=== PATIENT | female | born 1990 | race Caucasian/White ===

== ENCOUNTER 2017-08-06 20:06 | Emergency (ER) | payer SELFPAY ==
[2017-08-06 20:11] VITALS: BP 120/84; BMI 21.7
--- NOTE | 2017-08-07 07:35 | DR.TOOTHHP ---
HPI - Primary Care Physician Primary Care Physician: kim - Complaints Chief Complaint:: TOOTHACHE LEFT LOWER Self Treatment fo Chief Complaint: HYDROCODONE, TYLENOL WITH CODEINE, AMOXICILLIN 500M BID - Source History Provided: Patient - Mode of Arrival Mode of Arrival: Ambulatory - Timing Onset of Chief Complaint: 08/06/17 PMH - PMH Past Medical History: Yes Past Medical History: Kidney Stones Past Surgical History: Yes Past Surgical History Comment: BACK SURGERY - Family History History of Family Medical Conditions: No - Social History Type of Tobacco Use: Cigarettes Alcohol Use: None Do you use any recreational Drugs:: No Lives With: Family Lives Where: Home - infectious screening Have you traveled outside the country in the last 6 months?: No Isolation: Standard PE - Vital Signs Vitals: Temperature 98.5 F Pulse Rate 87 Respiratory Rate 20 Blood Pressure 120/84 O2 Sat by Pulse Oximetry 99 - Discharge Plan Disposition: LWBS After Triage Condition: Stable - Follow ups/Referrals Follow ups/Referrals: EMMANUEL LAURA [Primary Care Provider] - 3 days - Instructions
== END 2017-08-06 20:17 | disposition left against medical advice (07) ==
LOC: ER 20:06
DX: K08.89 Other specified disorders of teeth and supporting structures (principal)
CPT/HCPCS: 99281

== ENCOUNTER 2017-08-29 04:10 | Emergency (ER) | payer SELFPAY ==
[2017-08-29 04:24] VITALS: BP 123/80; BMI 20.9
[2017-08-29] MEDS ORDERED: TORADOL 30 MG VIAL ONE (04:29)
[2017-08-29] MEDS ORDERED: NS 1000 ML 1,000 ML ONE (04:29)
[2017-08-29] MEDS ORDERED: NS 1000 ML 1,000 ML IV ONE (04:39)
[2017-08-29] MEDS ORDERED: TORADOL 30 MG VIAL IVP ONE (04:39)
[2017-08-29 04:44] LABS: COLOR,URINE RED (YELLOW)
[2017-08-29 04:45] LABS: APPEARANCE,URINE HAZY (CLEAR); BACTERIA,URINE 1+ /HPF (Negative); MUCUS,URINE MODERATE /HPF (NEGATIVE); RBC,URINE 80-100 /HPF (NEGATIVE); SQUAMOUS EPITHELIAL CELL,UR FEW /HPF (NEGATIVE)
--- NOTE | 2017-08-29 05:28 | CT ---
CT abdomen and pelvis without contrast Indication: Left flank pain and hematuria Technique: Helical CT images of the abdomen and pelvis were obtained without IV contrast. Reformatted images in the coronal and sagittal planes were also generated for review. Comparison: None Findings: The lung bases are clear. Partially imaged posterior thoracolumbar fusion hardware is prese nt without visualized complication. No acute or aggressive osseous abnormality is identified. Streak artifact related to thoracolumbar fusion hardware slightly limits evaluation. Evaluation for s oft tissue pathology is also limited without intravenous contrast. Given these limitations, the liver , gallbladder, spleen, pancreas and adrenals are unremarkable. There are multiple small nonobstructin g stones within both kidneys. No radiopaque ureteral stones are identified and there is no left or ri ght hydroureteronephrosis. The GI tract, including the appendix is normal. The IVC, abdominal aorta and urinary bladder are norm al. The unenhanced uterus and adnexa are grossly within normal limits. No free air, free fluid or lym phadenopathy is identified. Impression: Bilateral nonobstructing nephrolithiasis. Reported By:
[2017-08-29] MEDS ORDERED: MORPHINE SULFATE INJ 4 MG IVP ONE (05:38)
[2017-08-29] MEDS ORDERED: MORPHINE SULFATE INJ 2 MG INJ ONE (05:39)
--- NOTE | 2017-08-29 05:40 | DR.GENAD ---
HPI - PCP Primary Care Physician: KEYA - Complaint/Symptoms Chief Complaint:: PT STATES" MY LT SIDE HAS BEEN HURTING FREQUENCY THE LAST COUPLE OF DAYS I NOTICED BLOOD IN MY URINE ALSO. I LAST HAD A KIDNEY STONE 5 YEARS AGO" - Source History Provided: Patient - Mode of Arrival Mode of Arrival: Ambulatory - Timing Onset of Chief Complaint: 08/29/17 PMH - PMH Past Medical History: Yes Past Medical History: Kidney Stones Past Surgical History: Yes Past Surgical History Comment: BACK SURGERY - Family History History of Family Medical Conditions: Yes - Social History Type of Tobacco Use: Cigarettes Does any household member use tobacco: No Alcohol Use: Occasionally Do you use any recreational Drugs:: No Lives With: Family Lives Where: Home - infectious screening In the last 2 months have you had wt loss of >10#?: NO Have you had fever, night sweats or hemotysis?: No Have you traveled outside the country in the last 6 months?: No Isolation: Standard ROS - Review of Systems Eyes: No Symptoms Reported ENTM: No Symptoms Reported Respiratoy: No Symptoms Reported Cardiovascular: No Symptoms Reported Gastrointestinal/Abdominal: No Symptoms Reported Genitourinary: No Symptoms Reported Neurological: No Symptoms Reported Musculoskeletal: No Symptoms Reported Integumentary: No Symptoms Reported Hematologic/Lymphatic: No Symptoms Reported Endocrine: No Symptoms Reported Psychiatric: No Symptoms Reported All Other Systems: Reviewed and Negative PE - Vital Signs Vitals: Temperature 97.8 F Pulse Rate 100 Respiratory Rate 18 Blood Pressure 123/80 O2 Sat by Pulse Oximetry 99 - General Limitations: No Limitations General Appearance: Alert, Anxious - Head Head Exam: Normal Inspection, Atraumatic - Eyes Eye exam: Normal Appearance, PERRL, EOMI - ENT ENT Exam: Normal Exam External Ear Exam: Normal External Inspection TM/Canal Exam: Bilateral Normal Nose Exam: Normal Nose Exam Mouth Exam: Normal Inspection Throat Exam: Normal Inspection - Neck Neck Exam: Normal Inspection, Full ROM - Chest Chest Inspection: Normal Inspection, Symmetric Chest Wall Rise - Respiratory Respiratory Exam: Normal Lung Sounds Bilat Respiratory Exam: Bilateral Clear to Auscultation - Cardiovascular Cardiovascular Exam: Regular Rate, Normal Rhythm - Abdominal Exam Abdominal Exam: Normal Inspection, Normal Bowel Sounds Abdominal Tenderness: RUQ, LUQ - Extremities Extremities Exam: Normal Inspection, Full ROM - Back Back Exam: Normal Inspection, Tenderness, Other (mid low back) - Neurologic Neurological Exam: Alert, Oriented X3, CN II-XII Intact - Psychiatric Psychiatric Exam: Normal Affect - Skin Skin Exam: Warm, Dry, Intact Course - Reevaluation 1st: Improved - Education/Counseling Educated On: Treatment, Diagnosis, Prognosis, Needs for Follow Up ROR - Labs Reviewed Laboratory: Specimen Type Clean catch urine 08/29/17 04:27 Urine Color Red (YELLOW) 08/29/17 04:27 Urine Appearance Hazy (CLEAR) 08/29/17 04:27 Urine RBC 80-100 /HPF (NEGATIVE) 08/29/17 04:27 Urine WBC 8-12 /HPF (NEGATIVE) 08/29/17 04:27 Ur Squamous Epith Cells Few /HPF (NEGATIVE) 08/29/17 04:27 Urine Bacteria 1+ /HPF (Negative) 08/29/17 04:27 Urine Mucus Moderate /HPF (NEGATIVE) 08/29/17 04:27 Ur Culture Indicated? Yes/culture set up 08/29/17 04:27 Micro UA Comment Unable to perform (-) 08/29/17 04:27 - XRAY XRAY Interpreted by: Radiologist (CT: Abd/pel: Bilateral nonobstructing nephrolitihiasis) - Diagnosis Discharge Problem: Bilateral nonobstruction nehrolithiasis - Discharge Plan Condition: Stable - Follow ups/Referrals Follow ups/Referrals: EMMANUEL LAURA [Primary Care Provider] - 3 days - Instructions
== END 2017-08-29 06:15 | disposition home or self-care (01) ==
LOC: ER 04:10
DX: N20.0 Calculus of kidney (principal)
CPT/HCPCS: 74176; 81015; 87086; 96365; 96374; 99283; A4222; J1885; J2270

== ENCOUNTER 2017-09-09 01:34 | Emergency (ER) | payer SELFPAY ==
[2017-09-09 01:45] VITALS: BMI 20.9
[2017-09-09] MEDS ORDERED: ZOFRAN INJ 4 MG VIAL IVP ONE (02:09)
[2017-09-09] MEDS ORDERED: NS 1000 ML 1,000 ML IV ONE (02:09)
[2017-09-09] MEDS ORDERED: ROCEPHIN VIAL 1 GM 1 GM in NS 50 ML IV + SPIKE MINIBAG* 50 ML IV ONE (02:09)
[2017-09-09] MEDS ORDERED: TORADOL 30 MG VIAL IVP ONE (02:09)
[2017-09-09] MEDS ORDERED: ZOFRAN INJ 4 MG VIAL ONE (02:10)
[2017-09-09] MEDS ORDERED: NS 1000 ML 1,000 ML ONE (02:11)
[2017-09-09] MEDS ORDERED: DILAUDID INJ ONE (02:11)
[2017-09-09] MEDS ORDERED: NS 50 ML IV 50 ML IV ONE (02:13)
[2017-09-09] MEDS ORDERED: TORADOL 30 MG VIAL ONE (02:14)
[2017-09-09] MEDS ORDERED: DILAUDID INJ IVP ONE (02:15)
[2017-09-09 02:39] LABS: ALANINE AMINOTRANSFERASE 15 Units/L (12-78); ALBUMIN 3.4 g/dL (3.4-5.0); ALKALINE PHOSPHATASE 37 Units/L (46-116); ASPARTATE AMINO TRANSFERASE 11 Units/L (15-37); BLOOD UREA NITROGEN 14 mg/dL (7-18); CARBON DIOXIDE 29.7 mmol/L (21-32); CHLORIDE 109 mmol/L (98-107); CREATININE 0.74 mg/dL (0.55-1.02); SODIUM 144 mmol/L (136-145); TOTAL PROTEIN 6.5 g/dL (6.4-8.2); eGFR BLACK RACES > 60 (>60); eGFR NON BLACK RACES > 60 (>60)
--- NOTE | 2017-09-09 02:40 | DR.GENAD ---
HPI - PCP Primary Care Physician: nfd - HPI Comment HPI Comment: PAIN WORSE TONIGHT. INTRACTABLE. ON ANTIBIOTICS AND PAIN MEDS BUT NOT HELPING. HEAD IS POUNDING AND PAIN GOING INTO THE EARS TO BACK OF HEAD. SHE DENIES FEVER. SHE IS HAVING DIFFICULTY EATING OR DRINKING FLUIDS, SHE FEELS WEAK. - Complaint/Symptoms Chief Complaint Doctors Comments: SEVERE DENTAL PAIN FOR FEW DAYS. Chief Complaint:: dental pain since 2149 last night pt is on 3rd round of amoxillicin - Nurses notes reviewed Nurses Notes Review: Yes - Source History Provided: Patient, Parent - Mode of Arrival Mode of Arrival: Ambulatory - Timing Onset of Chief Complaint: 09/08/17 Came on: Suddenly - Duration Duration: Constant Duration: Days - Severity Severity: Moderate PMH - PMH Past Medical History: Yes Past Medical History: Kidney Stones Past Surgical History: Yes - Family History History of Family Medical Conditions: Yes - Social History Alcohol Use: Occasionally Do you use any recreational Drugs:: No Lives With: Family Lives Where: Home - infectious screening In the last 2 months have you had wt loss of >10#?: NO Have you had fever, night sweats or hemotysis?: No Have you traveled outside the country in the last 6 months?: No Isolation: Standard ROS - Review of Systems Constitutional: Weakness, Fatigue, Loss of Appetite. negative: Chills, Fever Eyes: negative: Eye Pain, Discharge ENTM: Ear Pain, Mouth Pain, Mouth Swelling, Loose Teeth, Throat Pain. negative : Nose Discharge, Epistaxis, Nose Congestion Respiratoy: Moist Cough. negative: Short of Breath, Wheezing, Hemoptysis Cardiovascular: No Symptoms Reported Gastrointestinal/Abdominal: No Symptoms Reported Genitourinary: No Symptoms Reported. negative: Dysuria, Frequency, Hematuria Neurological: Headache, Weakness Musculoskeletal: Muscle Pain Integumentary: No Symptoms Reported Hematologic/Lymphatic: No Symptoms Reported Endocrine: No Symptoms Reported All Other Systems: Reviewed and Negative PE - Vital Signs Vitals: Temperature 97.9 F Pulse Rate [Left] 89 Pulse Rate 98 Respiratory Rate 15 Blood Pressure [Right Arm] 118/54 Blood Pressure 132/62 O2 Sat by Pulse Oximetry 99 - General Limitations: No Limitations General Appearance: Alert - Head Head Exam: Normal Inspection - Eyes Eye exam: Normal Appearance - ENT ENT Exam: Normal External Ear Exam External Ear Exam: Normal External Inspection TM/Canal Exam: Bilateral Normal Nose Exam: Normal Nose Exam Mouth Exam: Other (MULTIPLE CARIES UPPER AND LOWER TEETH WITH GUM REDNESS, SWELLING AND TENDERNESS.). negative: Trismus Throat Exam: Tonsillar Erythema, Tonsillomegaly (LEFT SIDE SWELLING). negative : Tonsillar Exudate, R Peritonsillar Mass, L Peritonsillar Mass - Neck Neck Exam: Trachea Midline, Lymphadenopathy. negative: Tenderness, Meningismus - Chest Chest Inspection: Symmetric Chest Wall Rise - Respiratory Respiratory Exam: Normal Lung Sounds Bilat Respiratory Exam: Bilateral Clear to Auscultation - Cardiovascular Cardiovascular Exam: Regular Rate, Normal Rhythm, Normal Heart Sounds - Abdominal Exam Abdominal Exam: Normal Bowel Sounds, Soft. negative: Tenderness - Extremities Extremities Exam: Normal Inspection - Back Back Exam: Normal Inspection - Neurologic Neurological Exam: Alert, Oriented X3 - Psychiatric Psychiatric Exam: Normal Affect, Normal Mood - Skin Skin Exam: Normal Color MDM - Additional Information Additional Information Obtained From: Family - Differential Diagnosis Differential Diagnosis: DEBTAL PAIN, GINGIVITIS, INTRACTABLE PAIN Course - Treatment Treatment: SEE ORDERS. MEDS IN ED AND NS IN PER ORDERS. - Reevaluation 1st: Improved - Education/Counseling Education/Counseling: Patient, Family, Education Educated On: Treatment, Diagnosis, Needs for Follow Up ROR - Labs Reviewed Laboratory Results Reviewed?: Yes Result Diagrams: 09/09/17 02:22 09/09/17 02:22 Laboratory: WBC 5.4 X10^3/uL (3.6-10.0) 09/09/17 02:22 RBC 4.15 X10^6/uL (3.5-5.4) 09/09/17 02:22 Hgb 12.5 g/dL (12.0-16.0) 09/09/17 02:22 Hct 36.4 % (36.0-47.0) 09/09/17 02:22 MCV 87.6 fL (80.0-100.0) 09/09/17 02:22 MCH 30.1 pg (27.0-34.0) 09/09/17 02:22 MCHC 34.3 g/dL (33.0-35.0) 09/09/17 02:22 RDW 12.3 % (11.6-16.5) 09/09/17 02:22 Plt Count 133 X10^3/uL (150.0-450.0) L 09/09/17 02:22 MPV 10.6 fL (7.4-11.0) 09/09/17 02:22 Neut % 48.8 % (42.0-75.0) 09/09/17 02:22 Lymph % 39.5 % (21.0-51.0) 09/09/17 02:22 [place] % 7.0 % (0.0-13.0) 09/09/17 02:22 Eos % 4.1 % (0.9-2.9) H 09/09/17 02:22 Baso % 0.6 % (0.2-1.0) 09/09/17 02:22 Neut # 2.7 x10^3/uL (2.2-4.8) 09/09/17 02:22 Lymph # 2.1 X10^3/uL (1.3-2.9) 09/09/17 02:22 [place] # 0.4 x10^3/uL (0.3-0.8) 09/09/17 02:22 Eos # 0.2 x10^3/uL (0.0-0.2) 09/09/17 02:22 Baso # 0.0 X10^3/uL (0.0-0.1) 09/09/17 02:22 Absolute Nucleated RBC 0.0 /100WBC 09/09/17 02:22 Sodium 144 mmol/L (136-145) 09/09/17 02:22 Corrected Sodium TNP 09/09/17 02:22 Potassium 3.6 mmol/L (3.5-5.1) 09/09/17 02:22 Chloride 109 mmol/L (98-107) H 09/09/17 02:22 Carbon Dioxide 29.7 mmol/L (21-32) 09/09/17 02:22 BUN 14 mg/dL (7-18) 09/09/17 02:22 Creatinine 0.74 mg/dL (0.55-1.02) 09/09/17 02:22 Est GFR (MDRD) Af Amer > 60 (>60) 09/09/17 02:22 Est GFR (MDRD) Non-Af > 60 (>60) 09/09/17 02:22 Glucose 109 mg/dL (65-99) H 09/09/17 02:22 Calcium 8.0 mg/dL (8.5-10.1) L 09/09/17 02:22 Corrected Calcium TNP 09/09/17 02:22 Total Bilirubin 0.10 mg/dL (0.2-1.0) L 09/09/17 02:22 AST 11 Units/L (15-37) L 09/09/17 02:22 ALT 15 Units/L (12-78) 09/09/17 02:22 Alkaline Phosphatase 37 Units/L (46-116) L 09/09/17 02:22 Total Protein 6.5 g/dL (6.4-8.2) 09/09/17 02:22 Albumin 3.4 g/dL (3.4-5.0) 09/09/17 02:22 Globulin 3.1 g/dL (2.5-4.5) 09/09/17 02:22 Albumin/Globulin Ratio 1.1 Ratio (1.1-2.1) 09/09/17 02:22 - Diagnosis Discharge Problem: Pain, dental, Gingivitis, Intractable pain - Discharge Plan Disposition: HOME, SELF-CARE Condition: Stable Prescriptions: Hydrocodone-Acet 5 mg/325 mg [[place] 5/325 mg Tab] 1 tab PO Q6H PRN #15 tab PRN Reason: Pain Ketorolac Tromethamine [Toradol Tab] 10 mg PO Q8H PRN #20 tab PRN Reason: Pain Methylprednisolone Dosepak 4Mg [MEDROL DOSEPAK (4 mg tab x 21)] 1 christiano PO ONCE # 1 christiano - Follow ups/Referrals Follow ups/Referrals: NFD,None [Primary Care Provider] - 3 days - Instructions Instructions: Gingivitis, [id number], Dental Caries, Dental Abscess, Easy-to- Read Additional Instructions: RETURN TO ED IF WORSE. FOLLOW UP WITH THE [facility]. CONTINUE WITH CURRENT ANTIBIOTIC
[2017-09-09 02:41] LABS: BASOPHILS % (AUTO) 0.6 % (0.2-1.0); EOSINOPHILS # (AUTO) 0.2 x10^3/uL (0.0-0.2); EOSINOPHILS % (AUTO) 4.1 % (0.9-2.9); HEMATOCRIT 36.4 % (36.0-47.0); HEMOGLOBIN 12.5 g/dL (12.0-16.0); LYMPHOCYTES # (AUTO) 2.1 X10^3/uL (1.3-2.9); LYMPHOCYTES % (AUTO) 39.5 % (21.0-51.0); MEAN CORPUSCULAR HEMOGLOBIN 30.1 pg (27.0-34.0); MEAN CORPUSCULAR HGB CONC 34.3 g/dL (33.0-35.0); MEAN CORPUSCULAR VOLUME 87.6 fL (80.0-100.0); MEAN PLATELET VOLUME 10.6 fL (7.4-11.0); MONOCYTES # (AUTO) 0.4 x10^3/uL (0.3-0.8); NEUTROPHILS # (AUTO) 2.7 x10^3/uL (2.2-4.8); NEUTROPHILS % (AUTO) 48.8 % (42.0-75.0); PLATELET COUNT 133 X10^3/uL (150.0-450.0); RED BLOOD COUNT 4.15 X10^6/uL (3.5-5.4); RED CELL DISTRIBUTION WIDTH 12.3 % (11.6-16.5); WHITE BLOOD COUNT 5.4 X10^3/uL (3.6-10.0)
[2017-09-09 04:21] VITALS: BP 118/54
== END 2017-09-09 04:00 | disposition home or self-care (01) ==
LOC: ER 01:34
DX: K05.10 Chronic gingivitis, plaque induced (principal); K08.89 Other specified disorders of teeth and supporting structures; R52 Pain, unspecified
CPT/HCPCS: 36415; 80053; 85025; 96365; 96374; 96375; 99283; 99284; A4222; J0696; J1170; J1885; J2405